=== PATIENT | female | born 1985 | race African-American/Black ===

== ENCOUNTER 2016-03-06 21:04 | Emergency (ER) | payer OTHER ==
[~2016-03-06] VITALS: Ht 172.7 cm; Wt 124.7 kg
[~2016-03-06 21:04] MED LIST: APAP500 PO; ATIVAN1 M1 PO; AZITHROMYCIN 2250 MG PO; BACTRIM DS TAB1 EACH PO; CEFTIN 250 MG250 MG PO; COLACE 100 MG100 MG PO; CORTISPORIN OTI10 M2 OTIC; DERMOPLAST SPRA56 ML; DOXYCYCLINE 10100 M1 PO; FAMOTIDINE PO; HYDROCORTISONE30 G9 RE; IBUPROFEN 600600 M1 PO; IBUPROFEN 800800 M1 PO; IROSPAN 24/6 T1 EACH PO; LANOLIN56 GM; LEVOTHYROXIN0.075 MG PO; LEVOTHYROXINE0.05 MG PO; LICE TREATMENT118 ML TP; MACROBID 100 M100 M1 PO; MECLIZINE HCL25 M1 PO; MEDROL DOSPAK21 TAB PO; MUCINEX600 MG; NOHOMEMEDICATIONS; NORCO 5-325 TA1 EACH PO; ONDANSETRON HCL4 M2 PO; PHENERGAN 25 MG25 M1 PO; PHENTERMINE HCL30 MG PO; PRENATAL; TUCKS1 EAC1 TP; ULTRAM 50MG TAB50 MG PO; ZOFRAN ODT4 MG PO; ZPAK
[2016-03-06] MEDS ORDERED: IBUPROFEN 600600 M1 PO (22:37)
[2016-03-06 22:52] VITALS: BP 112/72
== END 2016-03-06 22:53 | disposition home or self-care (01) ==
LOC: ER 21:04
DX: S90.01XA Contusion of right ankle, initial encounter (principal); E03.9 Hypothyroidism, unspecified; Z88.0 Allergy status to penicillin; F10.99 Alcohol use, unspecified with unspecified alcohol-induced disorder; V49.9XXA Car occupant (driver) (passenger) injured in unspecified traffic accident, initial encounter; Y93.89 Activity, other specified; Y92.89 Other specified places as the place of occurrence of the external cause; Y99.8 Other external cause status

== ENCOUNTER → 2020-01-14 | Outpatient (CLI) | payer OTHER, BC | LOC: LAB 10:49 | PROVIDERS: ATTEND Family Medicine | DX: J02.9 Acute pharyngitis, unspecified (principal); Z20.828 Contact with and (suspected) exposure to other viral communicable diseases ==

== ENCOUNTER → 2021-04-20 | Outpatient (CLI) | payer BC | LOC: RAD 10:40 | PROVIDERS: ATTEND Nurse Practitioner | DX: N64.59 Other signs and symptoms in breast (principal); N64.4 Mastodynia ==